=== PATIENT | female | born 1960 | race Caucasian/White ===

== ENCOUNTER 2022-09-26 01:02 | Emergency (ER) | payer MEDICARE ==
[2022-09-26 02:12] LABS: #Basophils 0.1 thou/uL (0.0-0.2); #Lymphocytes 2.4 thou/uL (1.20-3.40); #Monocytes 0.3 thou/uL (0.11-0.59); #Neutrophils 5.8 thou/uL (1.40-6.50); %Basophils 0.9 % (0.0-1.0); %Lymphocytes 28.2 % (21.0-51.0); %Monocytes 3.7 % (0.0-10.0); %Neutrophils 67.3 % (42.0-75.0); Hemoglobin 12.8 g/dL (12.0-16.0); Mean Corpuscular HGB CONC 33.5 g/dL (32.0-36.0); Mean Corpuscular Hemoglobin 30.7 pg (27.0-31.0); Mean Corpuscular Volume 91.4 fl (78.0-98.0); Mean Platelet Volume 7.3 fL (7.4-10.4); Platelet Count 237 10x3/uL (130-400); RBC Distribution Width 11.9 % (11.5-14.5); Red Blood Cell (RBC) Count 4.16 mill/uL (4.20-5.40); White Blood Cell (WBC) Count 8.6 10x3/uL (4.8-10.8)
[2022-09-26 02:23] LABS: ALT (SGPT) 20 U/L (8-55); AST (SGOT) 19 U/L (5-34); Alkaline Phosphatase 72 U/L (40-110); Anion Gap 15 mmol/L (10-20); BUN (Urea Nitrogen) 10 mg/dL (9.8-20.1); Bilirubin, Total 0.4 mg/dL (0.2-1.2); Calc. Creatinine Clearance 0 mL/min (70-130); Calcium 9.6 mg/dL (7.8-10.44); Chloride 95 mmol/L (98-107); Estimated GFR 67; Glucose 142 mg/dL (80-115); Lipase 20 U/L (8-78); Potassium 3.1 mmol/L (3.5-5.1); Sodium 132 mmol/L (136-145)
[2022-09-26 02:34] LABS: Carbon Dioxide 25 mmol/L (23-31)
[2022-09-26 02:45] LABS: Magnesium 1.3 mg/dL (1.6-2.6)
[2022-09-26] MEDS ORDERED: Magnesium 2 GM/50 ML BAG (IN WATER) ONE (03:12)
[2022-09-26 04:46] LABS: Bilirubin Negative (Negative); Blood, Urine Negative (Negative); Clarity Clear (Clear); Glucose, Urine (Dipstick) Negative (Negative); Ketone, Urine Negative (Negative); Leukocyte Negative (Negative); Nitrite Negative (Negative); Protein, Urine (Dipstick) Negative (Neg-Trace); Urobilinogen 0.2 mg/dL (Less than 2); pH, Urine 5.5 (5.0-9.0)
[2022-09-26 04:58] LABS: Specific Gravity, Urine 1.031 (1.002-1.036)
[2022-09-26 04:59] LABS: Bacteria/HPF None Seen HPF (None Seen); CAUTI Indications for Culture Pelvic or flank pain; RBC/HPF None Seen HPF (0-3); Squamous Epithelial 0-3 HPF (0-3); WBC/HPF 0-3 HPF (0-3)
[2022-09-26 05:00] LABS: Urine Culture Reflex No No
[2022-09-26] MEDS ORDERED: Potassium Chloride 20 MEQ TAB ONE (05:25)
[2022-09-26] MEDS ORDERED: Iopamidol 370 76% 100 ML VIAL ONE (09:18)
== END 2022-09-26 05:40 | disposition home or self-care (01) ==
LOC: MADERS 01:02
DX: K80.20 Calculus of gallbladder without cholecystitis without obstruction (principal); N28.1 Cyst of kidney, acquired; E87.6 Hypokalemia; E83.42 Hypomagnesemia; E27.9 Disorder of adrenal gland, unspecified; E11.9 Type 2 diabetes mellitus without complications; E03.9 Hypothyroidism, unspecified; K21.9 Gastro-esophageal reflux disease without esophagitis; I10 Essential (primary) hypertension; E66.9 Obesity, unspecified; Z79.84 Long term (current) use of oral hypoglycemic drugs; Z79.899 Other long term (current) drug therapy
CPT/HCPCS: 74177; 80053; 81001; 83690; 83735; 85025; 87086; 96365; J3475; Q9967